=== PATIENT | female | born 1945 | race Caucasian/White ===

== ENCOUNTER 2017-06-26 13:31 | Emergency (ER) | payer MEDICARE, OTHER ==
[~2017-06-26] VITALS: Ht 153.7 cm; Wt 72.0 kg
[~2017-06-26 13:31] MED LIST: ALBU0.086 NEB; ALBU2.5I INH; ALBU8I INH; AZIT250T74 PO; BROV15NE INH; BUDE.5I NEB; IPRA0.02 NEB; OMEP20TA39 PO; PRED20 PO
[2017-06-26 13:32] VITALS: BP 137/60; PULSE 83; RESP 16; TEMP 99.9; O2SAT 97
[2017-06-26] MEDS ORDERED: BUDE0.5S NEB (13:56)
[2017-06-26] MEDS ORDERED: DICL75TA PO (13:56)
[2017-06-26] MEDS ORDERED: BROV15NE NEB (13:56)
[2017-06-26] MEDS ORDERED: OMEP20TA PO (13:56)
[2017-06-26] MEDS ORDERED: HYDR2.5C TOPICAL (14:38)
--- NOTE | 2017-06-26 14:45 | PD ---
HPI Chief Complaint: Skin Problem Time Seen by Provider: 22:00 Travel History International Travel<30 days: No Contact w/Intl Traveler<30days: No Traveled to known affect area: No History of Present Illness HPI 72-year-old female with a 2 to 3 week of swelling of bilateral hands with scaling. She said that she has followed dermatology previously for the scaling and she was diagnosed with eczema. She was given multiple creams without significant improvement and is concerned that the swelling in her hands is unusual. Denies fevers, chills, chest pain, shortness of breath, nausea, vomiting, diarrhea. She states she has a history of COPD and takes her medications regularly. PFSH Past Medical History Hx Anticoagulant Therapy: No Arthritis: Yes Autoimmune Disease: No Blood Disorders: No Anxiety: No Depression: No Cancer: No Cardiovascular Problems: No Chemotherapy: No Chest Pain: Yes Congestive Heart Failure: No COPD: Yes Coronary Artery Disease: No Diabetes: No Diminished Hearing: No Endocrine: No Gastrointestinal Disorders: Yes (C/O CONSTIPATION COLITIS) GERD: Yes Genitourinary: No Headaches: Yes Immune Disorder: No Implanted Vascular Access Dvce: No Musculoskeletal: No Neurologic: No Psychiatric: No Reproductive: No Respiratory: Yes (COPD) Integumentary: Yes (cyst removed from face, back and left thigh) Immunizations Current: Yes Myocardial Infarction: No Radiation Therapy: No Thyroid Disease: No Ulcer: Yes Tetanus Vaccination: > 5 Years Influenza Vaccination: No ?: Not Menopausal: Yes Past Surgical History Abdominal Surgery: Yes (2006-"4-6 INCHES OF INTESTINE AND POLYP REMOVED") Cardiac Surgery: No Ear Surgery: No Endocrine Surgery: No Eye Surgery: No Genitourinary Surgery: Yes (STOMACH ULCER) Gynecologic Surgery: No Neurologic Surgery: No Oral Surgery: No Pacemaker: No Thoracic Surgery: No Other Surgery: Yes (BOWEL RESECTION, POLYP REMOVAL, LEFT FOOT BUNIONECTOMY) Social History Alcohol Use: Yes (rare) Tobacco Use: Yes (quit Oct 2015 smoked 1/2 - 8 cigs a day since the age of 20) Substance Use: No Allergies-Medications (Allergen,Severity, Reaction): Coded Allergies: amoxicillin (Unverified Allergy, Severe, HIVES, 06/26/17) ciprofloxacin (Unverified Allergy, Severe, HIVES, 06/26/17) clavulanic acid (Unverified Allergy, Severe, HIVES, 06/26/17) diatrizoate meglumine (Unverified Allergy, Severe, shortness of breath and hives, 06/26/17) gadobenic acid (Unverified Allergy, Severe, shortness of breath and hives , 06/26/17) gadodiamide (Unverified Allergy, Severe, shortness of breath and hives, ) gadoteridol (Unverified Allergy, Severe, shortness of breath and hives, ) iodixanol (Unverified Allergy, Severe, shortness of breath and hives, 06/26) iohexol (Unverified Allergy, Severe, shortness of breath and hives, ) penicillin G (Unverified Allergy, Severe, HIVES, 06/26/17) Sulfa (Sulfonamide Antibiotics) (Unverified Allergy, Intermediate, RASH, VOMITING, 06/26/17) codeine (Unverified Adverse Reaction, Severe, Nausea/Vomiting, 06/26/17) Reported Meds & Prescriptions Reported Meds & Active Scripts Active Hydrocortisone Topical 2.5% Cream 1 Applic TOPICAL BID 5 Days Reported Omeprazole 20 Mg Tab 20 Mg PO DAILY Diclofenac Sodium DR (Diclofenac Sodium) 75 Mg Tabdr 75 Mg PO BID Brovana Neb (Arformoterol Neb) 15 Mcg/2 Ml Vial 1 Nebule NEB BID Maintenance treatment of bronchoconstriction in COPD. Budesonide Neb 0.5 Mg/2 Ml Neb 0.5 Mg NEB DAILY NEB Review of Systems Except as stated in HPI: all other systems reviewed are Neg Physical Exam Narrative GENERAL: Well-nourished, well-developed patient. SKIN: Focused skin assessment warm/dry. Bilateral hands: Palmar aspect with mild skin scaling particularly at the joints. No erythema noted. No fluctuance or induration noted. Areas of scaling nontender, nonfriable. No lymphangiopathic Spread. Minimal swelling of the hands noted. Cap refill brisk , radial pulses present. HEAD: Normocephalic. NECK: Supple, trachea midline. No JVD or lymphadenopathy. CARDIOVASCULAR: Regular rate and rhythm without murmurs, gallops, or rubs. RESPIRATORY: Breath sounds equal bilaterally. No accessory muscle use. GASTROINTESTINAL: Abdomen soft, non-tender, nondistended. MUSCULOSKELETAL: No cyanosis, or edema. BACK: No CVA tenderness. Data Data Last Documented VS Vital Signs Date Time Temp Pulse Resp B/P (MAP) Pulse Ox O2 Delivery O2 Flow Rate FiO2 06/26/17 13:32 99.9 83 16 137/60 (85) 97 MDM Medical Decision Making Medical Screen Exam Complete: Yes Emergency Medical Condition: Yes Differential Diagnosis Eczema versus ichthyosis versus allergic dermatitis of the hands bilaterally Narrative Course 72-year-old female with a 4 month history of rash and scaling to the hands. Patient has been previously diagnosed with eczema given multiple medications by her repair service clerk and primary care physician. She denies any new medications, foods, and does not regularly work with chemicals or caustic substances. Her repair service clerk told her to avoid substances that may exacerbate the rash and scaling and states compliance. She was most concerned about her bilateral hand swelling however pulse, motor, sensory intact. I do not appreciate the swelling she describes. I recommend a topical steroid for symptomatic relief and return to dermatology. There is no indication of infection or uncontrolled swelling. I reassured patient and advised her to return to the ED if symptoms worsen or persist. Diagnosis Primary Impression: Dermatitis Scripts Hydrocortisone Topical (Hydrocortisone Topical) 2.5% Cream 1 APPLIC TOPICAL BID for Rash/Inflammation for 5 Days, GM 0 Refills Prov: Akilah Lea 06/26/17 Disposition: 01 DISCHARGE HOME Condition: Stable Akilah Lea Jun 26, 2017 14:45
== END 2017-06-26 14:59 | disposition home or self-care (01) ==
LOC: PHEFT 13:31
DX: L30.9 Dermatitis, unspecified (principal); J44.9 Chronic obstructive pulmonary disease, unspecified; K21.9 Gastro-esophageal reflux disease without esophagitis; Z88.0 Allergy status to penicillin; M19.90 Unspecified osteoarthritis, unspecified site; Z79.899 Other long term (current) drug therapy; Z87.891 Personal history of nicotine dependence
CPT/HCPCS: 99283